=== PATIENT | male | born 1940 ===

== ENCOUNTER 2017-03-01 16:53 | Inpatient (IN) | payer MEDICARE, MEDICAID ==
[2017-03-01] MEDS ORDERED: Sodium Chloride 0.9% 1,000 ML IV STA (17:26)
[2017-03-01] MEDS ORDERED: Sodium Chloride 0.9% 1,000 ML ONE (17:32)
--- NOTE | 2017-03-01 17:34 | C.PDOC ---
History Of Present Illness <Piero Sierra - Last Filed: 03/01/17 18:32> <Jose Angel Erickson E - Last Filed: 03/01/17 21:19> 76 y/o male with Hx of Hypercholesterolemia presents to ED with complaints of abdominal pain for 4 days with associated constipation not relieved with suppositories and x7 episodes of "dark brown color" vomiting since last night. Describes pain as upper abdomen, constant, severe. Patient s/p Cholecystectomy and Hernia repair in [place]. Patient denies fever, chest pain, sob, dysuria or any other complaints at this time. ([facility],Piero T) History Per: Patient History/Exam Limitations: no limitations Onset/Duration Of Symptoms: Days Current Symptoms Are (Timing): Still Present <Piero Sierra - Last Filed: 03/01/17 18:32> <Jose Angel Erickson - Last Filed: 03/01/17 21:19> Time Seen by Provider: 03/01/17 17:06 Chief Complaint (Nursing): Abdominal Pain Past Medical History Reviewed: Historical Data, Nursing Documentation, Vital Signs - Medical History PMH: Hypercholesterolemia, Hyperlipidemia Surgical History: Cholecystectomy Family History: States: No Known Family Hx - Social History Hx Alcohol Use: No Hx Substance Use: No - Immunization History Hx Tetanus Toxoid Vaccination: No Hx Influenza Vaccination: No Hx Pneumococcal Vaccination: No <Piero Sierra - Last Filed: 03/01/17 18:32> Surgical History: Cholecystectomy (40 yrs ago, open, (large incision) but no reported complications, R groin) <Jose Angel Erickson E - Last Filed: 03/01/17 21:19> Vital Signs: Last Vital Signs Temp 98.4 F 03/01/17 20:21 Pulse 70 03/01/17 20:21 Resp 18 03/01/17 20:21 BP 122/66 03/01/17 20:21 Pulse Ox 95 03/01/17 20:21 Review Of Systems Except As Marked, All Systems Reviewed And Found Negative. Constitutional: Negative for: Fever Cardiovascular: Negative for: Chest Pain Respiratory: Negative for: Shortness of Breath Gastrointestinal: Positive for: Vomiting, Abdominal Pain, Constipation <RigoPiero Shearer - Last Filed: 03/01/17 18:32> [facility] Ex[facility] Last Filed: 03/01/17 18:32> <Jose Angel Erickson - Last Filed: 03/01/17 21:19> - Physical Exam Additional Physical Exam Comments: Constitutional: No acute distress. Head: Normocephalic. Atraumatic. Eyes: PERRL. ENT: Moist mucous membranes. Neck: Supple. Cardiovascular: Regular rate. Radial pulse 2+ bilaterally. Chest: No tenderness. Respiratory: Clear to auscultation bilaterally. GI: Upper abdomen tenderness. Old cholecystectomy scar Rectal: No gross blood. No stool palpable in rectum. Back: No CVA tenderness. Musculoskeletal: No tenderness or swelling of extremities. Skin: No rash. Neurologic: Alert, no focal deficit. (Piero Sierra) ED Course And Treatment - Laboratory Results Result Diagrams: 03/01/17 17:49 03/01/17 17:49 O2 Sat by Pulse Oximetry: 98 (RA) Pulse Ox Interpretation: Normal <Piero Sierra - Last Filed: 03/01/17 18:32> - Laboratory Results Result Diagrams: 03/01/17 17:49 03/01/17 17:49 Lab Interpretation: Abnormal (UA neg, + mild leukocytosis) ECG: Interpreted By Ar ECG Rhythm: Sinus Rhythm ECG Interpretation: Normal Rate From EC - Radiology CXR: Interpreted by Ar CXR Interpretation: Yes: No Acute Disease, Other (good NGT placement) Progress Note: 2099: d/w lizzie Barrera to consult, asks for ICU consult to consider urine output. 2114: d/w Dr. Angus samuel to Obs <Jose Angel Erickson - Last Filed: 03/01/17 21:19> Medical Decision Making <Piero Sierra - Last Filed: 03/01/17 18:32> <Jose Angel Erickson - Last Filed: 03/01/17 21:19> Medical Decision Making: Plan: * CT scan abdomen * UA * Blood work EKG NSR 86 bpm, no ST/T wave changes. Pending CT. Will sign out to ER night team at change of shift. (Piero Sierra) signed over @ 1900 belly pain, pending CT, leukocytosis 14K CT c/w SBO NGT placed for 800 cc yellowish stomach contents, periumbelical pain much improved placement confirmed by CXR d/w Dr. Scott- ICU- @ bedside. A/P: SBO prob related to large open [place] 40 yrs ago or R groin surgery decompress w NGT and pending Surg Consult in AM (Jose Angel Erickson) Disposition <Piero Sierra - Last Filed: 03/01/17 18:32> Doctor Will See Patient In The: Hospital - Disposition Disposition Time: 21:18 <Jose Angel Erickson - Last Filed: 03/01/17 21:19> - Disposition Disposition: HOSPITALIZED Condition: GOOD Forms: [employer] ([place]) - Clinical Impression Clinical Impression: Small bowel obstruction - PA / GENERAL MAINTENANCE MECHANIC / Resident Statement MD/DO has examined the patient and agrees with the treatment plan. - Scribe Statement The provider has reviewed the documentation as recorded by the Scribe <Piero Sierra - Last Filed: 03/01/17 18:32> <Jose Angel Erickson - Last Filed: 03/01/17 21:19> - Scribe Statement Yusuf Reyes All medical record entries made by the Scribe were at my direction and personally dictated by me. I have reviewed the chart and agree that the record accurately reflects my personal performance of the history, physical exam, medical decision making, and the department course for this patient. I have also personally directed, reviewed, and agree with the discharge instructions and disposition. (Piero Sierra)
[2017-03-01 17:53] LABS: BASO % 0.1 % (0.0-2.0); EOS % 0.2 % (0.0-4.0); HEMATOCRIT 41.8 % (35.0-51.0); LYMPH # 0.6 K/uL (1.0-4.3); LYMPH % 4.2 % (20.0-40.0); MEAN CELL VOLUME 89.2 fL (80.0-94.0); MEAN CORPUSCULAR HEMOGLOBIN 29.8 pg (27.0-31.0); MEAN CORPUSCULAR HGB CONC 33.4 g/dL (33.0-37.0); MEAN PLATELET VOLUME 8.6 fL (7.2-11.7); MONO # 0.7 K/uL (0.0-0.8); PLATELET COUNT 180 K/uL (130-400); RED CELL DISTRIBUTION WIDTH 13.3 % (11.5-14.5); WHITE BLOOD COUNT 14.1 K/uL (4.8-10.8)
[2017-03-01 18:01] LABS: CHLORIDE 96 mmol/L (98-107); POTASSIUM 4.2 mmol/L (3.6-5.2); SODIUM 137 mmol/L (132-148)
[2017-03-01 18:03] LABS: CARBON DIOXIDE 28 mmol/L (22-30); GFR AFRICAN-AMERICAN > 60; INR 1.1
[2017-03-01 18:04] LABS: ALB/GLOB RATIO 1.6 (1.0-2.1); ALKALINE PHOSPHATASE 54 U/L (38-126); ALT/SGPT 39 U/L (21-72); AST/SGOT 38 U/L (17-59); BLOOD UREA NITROGEN 13 mg/dL (9-20); CALCIUM 10.2 mg/dl (8.6-10.4); GLUCOSE,RANDOM 127 mg/dL (75-110); TOTAL PROTEIN 7.7 g/dL (6.3-8.3)
[2017-03-01 18:29] LABS: URINE BACTERIA MANY (<OCC); URINE BILIRUBIN NEGATIVE (NEGATIVE); URINE BLOOD NEGATIVE (NEGATIVE); URINE GLUCOSE (UA) NORMAL (Normal); URINE KETONE TRACE mg/dL (NEGATIVE); URINE LEUKOCYTE ESTERASE NEG Leu/uL (Negative); URINE PROTEIN 2+ mg/dL (NEGATIVE); URINE UROBILINOGEN NORMAL mg/dL (0.2-1.0); WBC URINE 3 /hpf (0-5)
[2017-03-01 18:40] LABS: URINE COLOR YELLOW (YELLOW)
[2017-03-01] MEDS ORDERED: Iohexol 300 100 ML IJ ONE (18:41)
[2017-03-01 19:23] LABS: NEUTROPHIL 88 % (50-75); TOTAL CELLS COUNTED 100
--- NOTE | 2017-03-01 20:28 | CT ---
EXAM: CT Abdomen and Pelvis With Intravenous Contrast EXAM DATE/TIME: Exam ordered 03/01/2017 5:27 PM CLINICAL HISTORY: 76 years old, male; Pain; Abdominal pain; Flank; Lower; Additional info: Vomiting, abdominal pain, constipation, h/o giovanni TECHNIQUE: Axial computed tomography images of the abdomen and pelvis with intravenous contrast. All CT scans at this facility use one or more dose reduction techniques, viz.: automated exposure control; ma/kV adjustment per patient size (including targeted exams where dose is matched to indication; i.e. head); or iterative reconstruction technique. Coronal and sagittal reformatted images were created and reviewed. CONTRAST: 100 mL of omni 300 administered intravenously. COMPARISON: No relevant prior studies available. FINDINGS: Lower thorax: There is a subsegmental atelectasis in the right middle lobe. Pleural-based calcification is seen on the right. Mild interstitial prominence is seen at both lung bases. ABDOMEN: Liver: Unremarkable. No mass. Gallbladder and bile ducts: Surgical clips are seen in the gallbladder fossa. No calcified stones. No ductal dilation. Pancreas: Unremarkable. No mass. No ductal dilation. Spleen: Unremarkable. No splenomegaly. Adrenals: Unremarkable. No mass. Kidneys and ureters: Unremarkable. No solid mass. No hydronephrosis. Stomach and bowel: Dilated air and fluid-filled loops of small bowel are present. There are scattered colonic diverticula. Stool is seen in the ascending and transverse colon the descending colon is relatively decompressed. There is a small right inguinal hernia. Fluid is noted in the right inguinal canal. There is a right-sided Neal's hernia in the inguinal canal containing a small portion of a small bowel loop. There is an air-fluid level at the level of the second portion of the duodenum and the pancreatic head. This could represent a duodenal diverticulum. No mucosal thickening. Appendix: Not seen as a separate structure PELVIS: Bladder: Unremarkable. No mass. Reproductive: The prostate measures 4.6 x 3.6 x 3.2 cm. ABDOMEN and PELVIS: Intraperitoneal space: Unremarkable. No free air. No significant fluid collection. Bones/joints: Moderately advanced degenerative changes are seen in the lumbar spine. No acute fracture. No dislocation. Soft tissues: See above. Vasculature: Unremarkable. No abdominal aortic aneurysm. Lymph nodes: Unremarkable. No enlarged lymph nodes. IMPRESSION: 1. Abnormally dilated air and fluid-filled small bowel loops indicating partial small bowel obstruction or early high-grade small bowel obstruction. 2. There is a right inguinal Neal's hernia. The portion of the small bowel entering the right inguinal canal however shows no evidence of strangulation. 3. Colonic diverticula. 4. Possible duodenal diverticulum.
--- NOTE | 2017-03-01 22:49 | CP.PCM.CON ---
History of Present Illness - History of Present Illness History of Present Illness: Attending: Dr Garg PCP: Dr Tejal Corbin Reason for Consult: Evaluate for ICU admission Chief Comnplaint: Abdominal Pain The Patient was seen and examined in the ED HPI: 76 years old male with Cholecystectomy and left inguinal hernia repair, comes with a 4 days hx of constipation and 2 days of a constant, severe pain across the upper abdomen, not relieved by home remedies. This was associated with vomiting. No fever, SOB, Chest Pain, Dysuria nor urinary frequency. PMH: HLD; Arthritis PSH: Cholecystectomy; Left inguinal Hernia repair SH: Smokes < than 5 cigarettes perday; No alcohol use; No illegal drug use; Live with family FH: No known family hx Allergies: NKDA Medication: Simvastatin/ Meloxicam/ Fenofibrate Review of Systems - Constitutional Constitutional: absent: Fatigue, Fever, Headache, Lethargy - EENT Eyes: Requires Corrective Lenses. absent: Diplopia, Floaters, Photophobia Ears: absent: Decreased Hearing, Ear Discharge, Tinnitus Nose/Mouth/Throat: absent: Epistaxis, Nasal Congestion, Sinus Pain, Sinus Pressure - Cardiovascular Cardiovascular: absent: Chest Pain, Dyspnea, Edema - Respiratory Respiratory: absent: Cough, Dyspnea, Wheezing, Chest Congestion - Gastrointestinal Gastrointestinal: Abdominal Pain, Constipation, Nausea, Vomiting. absent: Diarrhea - Genitourinary Genitourinary: absent: Dysuria, Flank Pain, Hematuria - Musculoskeletal Musculoskeletal: Arthralgias. absent: Back Pain Additional comments: Arthritis of the Knees - Integumentary Integumentary: absent: Pruritus, Rash, Skin Ulcer, Sores, Striae, Swelling - Neurological Neurological: absent: Confusion, Dizziness, Focal Weakness, Weakness - Psychiatric Psychiatric: absent: Anxiety, Depression, Panic Attacks - Endocrine Endocrine: absent: Palpitations, Polydipsia, Polyphagia, Polyuria - Hematologic/Lymphatic Hematologic: absent: Easy Bleeding, Easy Bruising Past Patient History - Past Medical History & Family History Past Medical History?: Yes - Past Social History Smoking Status: Light Smoker < 10 Cigarettes Daily Chewing Tobacco Use: No Cigar Use: No Alcohol: None Drugs: Denies Home Situation {Lives}: With Family - CARDIAC Hx Hypercholesterolemia: Yes - PULMONARY Hx Respiratory Disorders: No - NEUROLOGICAL Hx Neurological Disorder: No - HEENT Hx HEENT Problems: No - RENAL Hx Chronic Kidney Disease: No - ENDOCRINE/METABOLIC Hx Endocrine Disorders: No - HEMATOLOGICAL/ONCOLOGICAL Hx Blood Disorders: No - INTEGUMENTARY Hx Dermatological Problems: No - MUSCULOSKELETAL/RHEUMATOLOGICAL Hx Arthritis: Yes - GASTROINTESTINAL Hx Gastrointestinal Disorders: No - GENITOURINARY/GYNECOLOGICAL Hx Genitourinary Disorders: No - PSYCHIATRIC Hx Psychophysiologic Disorder: No Hx Substance Use: No - SURGICAL HISTORY Hx Cholecystectomy: Yes (40 yrs ago, open, (large incision) but no reported complications, R groin) Hx Herniorrhaphy: Yes (left Inguinal Hernia repair) - ANESTHESIA Hx Anesthesia: Yes Hx Anesthesia Reactions: No Meds Allergies/Adverse Reactions: Allergies Allergy/AdvReac Type Severity Reaction Status Date / Time No Known Allergies Allergy Verified 03/01/17 17:20 Physical Exam - Constitutional Appears: No Acute Distress - Head Exam Head Exam: ATRAUMATIC, NORMAL INSPECTION, NORMOCEPHALIC - Eye Exam Eye Exam: EOMI, Normal appearance Pupil Exam: NORMAL ACCOMODATION, PERRL - ENT Exam ENT Exam: Mucous Membranes Moist, Normal Exam, Normal External Ear Exam, Normal Oropharynx - Neck Exam Neck exam: Positive for: Full Rom, Normal Inspection. Negative for: Lymphadenopathy, Tenderness - Respiratory Exam Respiratory Exam: Clear to Auscultation Bilateral. absent: Rales, Rhonchi, Wheezes - Cardiovascular Exam Cardiovascular Exam: REGULAR RHYTHM, RRR, +S1, +S2 - GI/Abdominal Exam Additional comments: Full, Soft, decreased bowel sounds, Tender at RUQ> LUQ; No rebound tenderness, No guarding. - Rectal Exam Rectal Exam: Deferred - Extremities Exam Extremities exam: Positive for: full ROM, normal inspection. Negative for: calf tenderness, pedal edema - Back Exam Back exam: NORMAL INSPECTION. absent: CVA tenderness (L), CVA tenderness (R) - Neurological Exam Neurological exam: Alert, CN II-XII Intact, Oriented x3, Reflexes Normal - Psychiatric Exam Psychiatric exam: Normal Affect, Normal Mood - Skin Skin Exam: Dry, Intact, Normal Color, Warm Results - Vital Signs Recent Vital Signs: Last Vital Signs Temp 98.4 F 03/01/17 20:21 Pulse 79 03/01/17 21:46 Resp 17 03/01/17 21:46 BP 116/62 03/01/17 21:46 Pulse Ox 94 L 03/01/17 21:46 - Labs Result Diagrams: 03/01/17 17:49 03/01/17 17:49 - Imaging and Cardiology CT scan - abdomen Status: Report reviewed by me Additional comment: Abnormal Dilated air and fluid filled small bowel loops indicating Partial Small Bowel Obstruction or early high grade SBO. Colonic Diverticula Assessment & Plan - Assessment and Plan (Free Text) Plan: 76 years old male with Cholecystectomy and left inguinal hernia repair, comes with a 4 days hx of constipation and 2 days of a constant, severe pain across the upper abdomen, not relieved by home remedies. This was associated with vomiting. #. Partial Small Bowel Obstruction -Surgery on consult Dr Moreno - NPO - NG tube inserted and drained 1 Liter of yellow material and still draining - Follow serial Obstructive series - follow Electrolytes and WBC - Measure urine output - Pain management with Morphine - Zofran #. Leucocytosis Probably reactive at present. The patient who refers some improvement in his abdominal pain with the NG suctioning has stable vital signs and is stable. He Could safely be monitored on a regular bed with continued NG suctioning and vital signs monitoring. He does not need to be in the ICU at the Present time. Jori Scott MD - Date & Time Date: 03/01/17 Time: 22:49
[2017-03-01] MEDS ORDERED: Sodium Chloride 0.9% 1,000 ML IV SCH (23:30)
[2017-03-02] MEDS: Sodium Chloride 0.9% 1,000 ML IV SCH ×2 (00:33→08:02)
[2017-03-02] MEDS: Dextrose 5%/0.45% NS 1,000 ML IV SCH ×2 (02:13→09:12)
[2017-03-02 06:50] LABS: BLOOD UREA NITROGEN 12 mg/dL (9-20); CALCIUM 9.3 mg/dl (8.6-10.4); CARBON DIOXIDE 25 mmol/L (22-30); CHLORIDE 100 mmol/L (98-107); GFR AFRICAN-AMERICAN > 60; GLUCOSE,RANDOM 127 mg/dL (75-110); PHOSPHOROUS 3.4 mg/dL (2.5-4.5); POTASSIUM 3.9 mmol/L (3.6-5.2); SODIUM 136 mmol/L (132-148)
[2017-03-02 07:14] LABS: BASO % 0.2 % (0.0-2.0); EOS # 0.1 K/uL (0.0-0.7); EOS % 0.7 % (0.0-4.0); HEMATOCRIT 41.6 % (35.0-51.0); LYMPH % 10.5 % (20.0-40.0); MEAN CELL VOLUME 89.2 fL (80.0-94.0); MEAN CORPUSCULAR HGB CONC 32.5 g/dL (33.0-37.0); MEAN PLATELET VOLUME 9.3 fL (7.2-11.7); MONO # 0.7 K/uL (0.0-0.8); MONO % 7.6 % (0.0-10.0); NRBC % 0.1 % (0.0-2.0); RED CELL DISTRIBUTION WIDTH 13.6 % (11.5-14.5); WHITE BLOOD COUNT 9.7 K/uL (4.8-10.8)
--- NOTE | 2017-03-02 07:55 | RAD ---
HISTORY: NGT placement (go lower) and adm COMPARISON: No prior. FINDINGS: LUNGS: Small linear opacities at the left lung base likely atelectasis or scar tissue. PLEURA: No significant pleural effusion identified, no pneumothorax apparent. CARDIOVASCULAR: Normal. OSSEOUS STRUCTURES: No significant abnormalities. VISUALIZED UPPER ABDOMEN: NG tube seen extending to the left upper abdomen. OTHER FINDINGS: None. IMPRESSION: Basilar opacities more prominent in the left likely represent atelectasis. NG tube seen at appropriate position.
[2017-03-02] MEDS: metroNIDAZOLE IV 500 mg/100 ml 500 MG/100 ML BAG IVPB SCH ×2 (09:11→18:30)
[2017-03-02] MEDS ORDERED: Cefepime IV 1 gm in Dextrose 1 GM/50 ML BAG IVPB SCH (10:00)
[2017-03-02] MEDS ORDERED: Potassium Chloride 20 MEQ in Dextrose 5%/0.9% NS 1,000 ML IV ONE (10:47)
--- NOTE | 2017-03-02 12:20 | CP.PCM.PN ---
Subjective - Date & Time of Evaluation Date of Evaluation: 03/02/17 Time of Evaluation: 10:00 - Subjective Subjective: PGY-[address] Garg Patient seen and examined at bedside. Patient reports his abdominal pain and vomiting improved since NG tube insertion. Patient is NPO awaiting to be seen by surgery and GI. Patient denies having headache, fever, chills, shortness of breath, chest pain, nausea, vomiting, or diarrhea. Objective - Vital Signs/Intake and Output Vital Signs (last 24 hours): Temp Pulse Resp BP Pulse Ox 99.0 F 66 20 115/66 96 03/02/17 08:11 03/02/17 08:11 03/02/17 08:11 03/02/17 08:11 03/02/17 08:11 Intake and Output: 03/02/17 03/02/17 06:59 18:59 Intake Total 750 Output Total 1550 Balance -800 - Medications Medications: Current Medications Famotidine (Pepcid) 20 mg IVP Q12 [facility] Cefepime HCl (Maxipime Iv 1 Gm Premix) 1 gm in 50 mls @ 100 mls/hr IVPB BID [facility] Last Admin: 03/02/17 10:45 Dose: 100 mls/hr Metronidazole (Flagyl) 500 mg in 100 mls @ 100 mls/hr IVPB BID [facility] Last Admin: 03/02/17 09:11 Dose: 100 mls/hr Potassium Chloride 20 meq/ (Dextrose/Sodium Chloride) 1,010 mls @ 150 mls/hr IV .[id number] ONE Stop: 03/02/17 17:30 Last Admin: 03/02/17 12:04 Dose: 150 mls/hr Morphine Sulfate (Morphine) 2 mg IVP Q4 PRN PRN Reason: Pain, moderate (4-7) Morphine Sulfate (Morphine) 4 mg IV Q4 PRN PRN Reason: Pain, severe (8-10) Ondansetron HCl (Zofran Inj) 4 mg IVP Q4H PRN PRN Reason: Nausea/Vomiting Pneumococcal Polyvalent Vaccine (Pneumovax 23 Vaccine) 0.5 ml IM .ONCE ONE Stop: 03/03/17 10:01 - Labs Labs: 03/02/17 06:22 03/02/17 06:22 PT 12.0 SECONDS (9.7-12.2) 03/01/17 17:49 INR 1.1 03/01/17 17:49 APTT 29 SECONDS (21-34) 03/01/17 17:49 - Constitutional Appears: Non-toxic, No Acute Distress - Head Exam Head Exam: ATRAUMATIC, NORMAL INSPECTION - Eye Exam Eye Exam: Normal appearance - ENT Exam Additional comments: NG tube in place - Neck Exam Neck Exam: Normal Inspection - Respiratory Exam Respiratory Exam: Clear to Ausculation Bilateral, NORMAL BREATHING PATTERN - Cardiovascular Exam Cardiovascular Exam: REGULAR RHYTHM, +S1, +S2. absent: Murmur - GI/Abdominal Exam GI & Abdominal Exam: Distended, Soft, Tenderness (diffused tenderness) - Extremities Exam Extremities Exam: Normal Inspection. absent: Pedal Edema - Neurological Exam Neurological Exam: Alert, Awake, Oriented x3 - Psychiatric Exam Psychiatric exam: Normal Affect, Normal Mood - Skin Skin Exam: Dry, Warm Assessment and Plan - Assessment and Plan (Free Text) Assessment: Partial bowel obstruction -Surgery consult, Dr. Hoover help appreciated -OR with Dr. Hoover this afternoon -LR @100ml/hr -Cefepime IV 1gm Q12h -Flagyl IV 500mg BID -Morphine for pain -Zofran -Urine culture showed no growth -Follow up AM labs PPX -Pepcid IV Q12 Case discussed with Dr. Garg
--- NOTE | 2017-03-02 13:44 | CP.PCM.HP ---
Past Patient History - Past Medical History & Family History Past Medical History?: Yes - Past Social History Smoking Status: Current Some Days Smoker - CARDIAC Hx Cardiac Disorders: Yes Hx Hypercholesterolemia: Yes - PULMONARY Hx Respiratory Disorders: No - NEUROLOGICAL Hx Neurological Disorder: No - HEENT Hx HEENT Problems: No - RENAL Hx Chronic Kidney Disease: No - ENDOCRINE/METABOLIC Hx Endocrine Disorders: No - HEMATOLOGICAL/ONCOLOGICAL Hx Blood Disorders: No - INTEGUMENTARY Hx Dermatological Problems: No - MUSCULOSKELETAL/RHEUMATOLOGICAL Hx Musculoskeletal Disorders: Yes Hx Arthritis: Yes Hx Falls: No - GASTROINTESTINAL Hx Gastrointestinal Disorders: No - GENITOURINARY/GYNECOLOGICAL Hx Genitourinary Disorders: No - PSYCHIATRIC Hx Psychophysiologic Disorder: No Hx Substance Use: No - SURGICAL HISTORY Hx Surgeries: Yes Hx Cholecystectomy: Yes (40 yrs ago, open, (large incision) but no reported complications, R groin) Hx Herniorrhaphy: Yes (left Inguinal Hernia repair) - ANESTHESIA Hx Anesthesia: Yes Hx Anesthesia Reactions: No Hx Malignant Hyperthermia: No Has any member of the family had a problem w/ anesthesia?: No Meds Allergies/Adverse Reactions: Allergies Allergy/AdvReac Type Severity Reaction Status Date / Time No Known Allergies Allergy Verified 03/01/17 17:20 Physical Exam - Constitutional Appears: Well - Head Exam Head Exam: ATRAUMATIC, NORMAL INSPECTION, NORMOCEPHALIC - Eye Exam Eye Exam: EOMI, Normal appearance, PERRL Pupil Exam: NORMAL ACCOMODATION, PERRL - ENT Exam ENT Exam: Mucous Membranes Moist, Normal Exam - Neck Exam Neck exam: Positive for: Normal Inspection - Respiratory Exam Respiratory Exam: Decreased Breath Sounds - Cardiovascular Exam Cardiovascular Exam: REGULAR RHYTHM, +S1, +S2 - GI/Abdominal Exam GI & Abdominal Exam: Diminished Bowel Sounds, Soft - Rectal Exam Rectal Exam: Deferred Results - Vital Signs Recent Vital Signs: Last Vital Signs Temp 99.0 F 03/02/17 08:11 Pulse 66 03/02/17 08:11 Resp 20 03/02/17 08:11 BP 115/66 03/02/17 08:11 Pulse Ox 96 03/02/17 08:11 - Labs Result Diagrams: 03/02/17 06:22 03/02/17 06:22
--- NOTE | 2017-03-02 14:59 | CP.PCM.CON ---
<Cristo Reyes - Last Filed: 03/02/17 16:09> History of Present Illness - History of Present Illness History of Present Illness: PGY5 GI Fellow Consult Note Patient is a 76yo male with PMHx significant for dyslipidemia, hypertriglyceridemia and osteoarthritis who presents to the hospital with abdominal pain, nausea and vomiting. Patient has had intermittent constipation over the past several months, responding to suppositories. In the week leading up to admission he had become very constipated without relief with his OTC suppository medications. Tuesday evening he developed slight B/L upper abdominal pain which worsened over the several days that followed. On Tuesday, pain intensified and he became nauseated and vomited dark brown emesis multiple times at work. Pt admits that he has not had flatus or BM since this weekend. As symptoms continued to worsen, he decided to come to the ED for further evaluation. CT of the abdomen and pelvis noted multiple dilated loops of small bowel c/w SBO. He has since had NGT placed, connected to LIS with approximately 2-2.5L of dark brown/green output. Currently, he admits to persistent but improved B/L upper abdominal pain and nausea. He has not had BM or flatus since admission. Admits to 25lb weight loss in past year with occasional dark black stool. Admits to daily Mobic use for 4-5yrs for OA. PMHx: See HPI PSHx: Cholecystectomy and inguinal hernia repair in [place] 35yrs ago FHx: Discussed with patient and denies any significant family history Social: +tobacco use >60years Endo: No prior endoscopic evaluation Review of Systems - Constitutional Constitutional: Anorexia, Weight Loss. absent: Chills, Fever - EENT Eyes: absent: Change in Vision Nose/Mouth/Throat: absent: Dysphagia, Sore Throat - Cardiovascular Cardiovascular: absent: Chest Pain, Dyspnea, Palpitations - Respiratory Respiratory: absent: Cough, Dyspnea, Excessive Mucous Production - Gastrointestinal Gastrointestinal: Abdominal Pain, Bloating, Melena, Nausea, Vomiting. absent: Constipation, Cramping, Diarrhea, Hematemesis, Hematochezia, Loose Stools - Genitourinary Genitourinary: absent: Dysuria, Urinary Frequency, Urinary Urgency - Musculoskeletal Musculoskeletal: absent: Back Pain, Neck Pain - Integumentary Integumentary: absent: New Lesions, Rash - Neurological Neurological: absent: Dizziness, Numbness, Focal Weakness - Psychiatric Psychiatric: absent: Anxiety, Depression - Endocrine Endocrine: absent: Polydipsia, Polyphagia, Polyuria - Hematologic/Lymphatic Hematologic: absent: Easy Bleeding, Easy Bruising, Lymphadenopathy Past Patient History - Past Medical History & Family History Past Medical History?: Yes - Past Social History Smoking Status: Current Some Days Smoker - CARDIAC Hx Cardiac Disorders: Yes Hx Hypercholesterolemia: Yes - PULMONARY Hx Respiratory Disorders: No - NEUROLOGICAL Hx Neurological Disorder: No - HEENT Hx HEENT Problems: No - RENAL Hx Chronic Kidney Disease: No - ENDOCRINE/METABOLIC Hx Endocrine Disorders: No - HEMATOLOGICAL/ONCOLOGICAL Hx Blood Disorders: No - INTEGUMENTARY Hx Dermatological Problems: No - MUSCULOSKELETAL/RHEUMATOLOGICAL Hx Musculoskeletal Disorders: Yes Hx Arthritis: Yes Hx Falls: No - GASTROINTESTINAL Hx Gastrointestinal Disorders: No - GENITOURINARY/GYNECOLOGICAL Hx Genitourinary Disorders: No - PSYCHIATRIC Hx Psychophysiologic Disorder: No Hx Substance Use: No - SURGICAL HISTORY Hx Surgeries: Yes Hx Cholecystectomy: Yes (40 yrs ago, open, (large incision) but no reported complications, R groin) Hx Herniorrhaphy: Yes (left Inguinal Hernia repair) - ANESTHESIA Hx Anesthesia: Yes Hx Anesthesia Reactions: No Hx Malignant Hyperthermia: No Has any member of the family had a problem w/ anesthesia?: No Meds Allergies/Adverse Reactions: Allergies Allergy/AdvReac Type Severity Reaction Status Date / Time No Known Allergies Allergy Verified 03/01/17 17:20 - Medications Medications: Current Medications Famotidine (Pepcid) 20 mg IVP Q12 [facility] Cefepime HCl (Maxipime Iv 1 Gm Premix) 1 gm in 50 mls @ 100 mls/hr IVPB BID [facility] Last Admin: 03/02/17 10:45 Dose: 100 mls/hr Metronidazole (Flagyl) 500 mg in 100 mls @ 100 mls/hr IVPB BID [facility] Last Admin: 03/02/17 09:11 Dose: 100 mls/hr Potassium Chloride 20 meq/ (Dextrose/Sodium Chloride) 1,010 mls @ 150 mls/hr IV .Q6H44M ONE Stop: 03/02/17 17:30 Last Admin: 03/02/17 12:04 Dose: 150 mls/hr Morphine Sulfate (Morphine) 2 mg IVP Q4 PRN PRN Reason: Pain, moderate (4-7) Morphine Sulfate (Morphine) 4 mg IV Q4 PRN PRN Reason: Pain, severe (8-10) Ondansetron HCl (Zofran Inj) 4 mg IVP Q4H PRN PRN Reason: Nausea/Vomiting Pneumococcal Polyvalent Vaccine (Pneumovax 23 Vaccine) 0.5 ml IM .ONCE ONE Stop: 03/03/17 10:01 Physical Exam - Constitutional Appears: Non-toxic, No Acute Distress - Eye Exam Eye Exam: EOMI, PERRL - ENT Exam ENT Exam: Mucous Membranes Dry Additional comments: NGT in place with dark brown/green output - Respiratory Exam Respiratory Exam: Clear to Auscultation Bilateral. absent: Rales, Rhonchi, Wheezes - Cardiovascular Exam Cardiovascular Exam: RRR, +S1, +S2 - GI/Abdominal Exam GI & Abdominal Exam: Distended, Hypoactive Bowel Sounds, Soft. absent: Firm, Guarding, Organomegaly, Rigid, Tenderness - Extremities Exam Extremities exam: Positive for: normal inspection. Negative for: pedal edema - Neurological Exam Neurological exam: Alert, Oriented x3 - Psychiatric Exam Psychiatric exam: Normal Affect, Normal Mood - Skin Skin Exam: Dry, Warm Results - Vital Signs Recent Vital Signs: Last Vital Signs Temp 99.0 F 03/02/17 08:11 Pulse 66 03/02/17 08:11 Resp 20 03/02/17 08:11 BP 115/66 03/02/17 08:11 Pulse Ox 96 03/02/17 08:11 - Labs Result Diagrams: 03/02/17 06:22 03/02/17 06:22 Assessment & Plan - Assessment and Plan (Free Text) Assessment: Patient is a 76yo male with PMHx significant for dyslipidemia, hypertriglyceridemia and osteoarthritis who presents to the hospital with abdominal pain, nausea and vomiting -Small bowel obstruction -Constipation 2/2 above -OA on Mobic daily 4-5yrs Plan: -Agree with current management; NPO, NGT decompression with connection to LIS -Etiology likely a result of adhesive disease from prior surgical interventions -Defer current management to general surgical service - plan for surgical intervention this afternoon; plan per findings -Patient would benefit from endoscopic evaluation once acute issues resolve, likely outpatient -Separately, patient would benefit from daily PPI for GI ppx given rehanger NSAID use for OA -Will follow clinical course - Date & Time Date: 03/02/17 Time: 15:06 <Rivas Webster - Last Filed: 03/02/17 16:39> Meds - Medications Medications: Current Medications Famotidine (Pepcid) 20 mg IVP Q12 [facility] Cefepime HCl (Maxipime Iv 1 Gm Premix) 1 gm in 50 mls @ 100 mls/hr IVPB BID [facility] Last Admin: 03/02/17 10:45 Dose: 100 mls/hr Metronidazole (Flagyl) 500 mg in 100 mls @ 100 mls/hr IVPB BID [facility] Last Admin: 03/02/17 09:11 Dose: 100 mls/hr Potassium Chloride 20 meq/ (Dextrose/Sodium Chloride) 1,010 mls @ 150 mls/hr IV .Q6H44M ONE Stop: 03/02/17 17:30 Last Admin: 03/02/17 12:04 Dose: 150 mls/hr Morphine Sulfate (Morphine) 2 mg IVP Q4 PRN PRN Reason: Pain, moderate (4-7) Morphine Sulfate (Morphine) 4 mg IV Q4 PRN PRN Reason: Pain, severe (8-10) Ondansetron HCl (Zofran Inj) 4 mg IVP Q4H PRN PRN Reason: Nausea/Vomiting Pneumococcal Polyvalent Vaccine (Pneumovax 23 Vaccine) 0.5 ml IM .ONCE ONE Stop: 03/03/17 10:01 Results - Vital Signs Recent Vital Signs: Last Vital Signs Temp 99.0 F 03/02/17 08:11 Pulse 66 03/02/17 08:11 Resp 20 03/02/17 08:11 BP 115/66 03/02/17 08:11 Pulse Ox 96 03/02/17 08:11 - Labs Result Diagrams: 03/02/17 06:22 03/02/17 06:22 Attending/Attestation - Attestation I have personally seen and examined this patient.: Yes I have fully participated in the care of the patient.: Yes I have reviewed all pertinent clinical information: Yes Notes (Text): 03/02/17 16:38 76 year old male with HLD/OA , h/o cholecystectomy admitted with SBO. 1. Small bowel obstruction Plan: -s/p NGT decompression, going to OR now -agree with plan for surgery -supportive measures with hydration -will reassess post op -possible adhesions as etiology
--- NOTE | 2017-03-02 15:26 | RAD ---
PROCEDURE: Radiographs of the chest and abdomen (obstructive series) HISTORY: Follow up on SBO COMPARISON: CT abdomen and pelvis with contrast performed 03/01/17 FINDINGS: CHEST: Nasogastric tube extends expected location of the stomach. Heart size appears within normal limits. Dense atherosclerotic calcification of the aortic knob. No focal consolidation, significant pleural effusion, or definite pneumothorax identified.Please note that chest x-ray has limited sensitivity for the detection of pulmonary masses. Degenerative changes of the right greater than left shoulder and the thoracic spine. ABDOMEN AND PELVIS: Prominent dilated small bowel loops consistent with small bowel obstruction. Right upper quadrant surgical clips. No definite free air. Residual contrast is seen within the urinary bladder. Degenerative changes of the spine. IMPRESSION: Nasogastric tube extends to the expected location of the stomach. Dilated small bowel loops consistent with small bowel obstruction. Additional findings as above.
[2017-03-02] MEDS ORDERED: Propofol 10 mg/ml Inj (20 ML) ONE (15:40)
[2017-03-02] MEDS ORDERED: Lactated Ringer's 1,000 ML IV ONE ×2 (15:40→18:00)
[2017-03-02] MEDS ORDERED: Rocuronium 10 mg/ml (5 ml) ONE (15:43)
[2017-03-02] MEDS ORDERED: Sodium Chloride 0.9% 1,000 ML IV ONE (16:00)
[2017-03-02] MEDS ORDERED: Neostigmine Methylsulfate 3mg/3ml Syringe IV ONE (16:22)
[2017-03-02] MEDS ORDERED: Midazolam 2 MG/2 ML VIAL ONE (16:45)
[2017-03-02] MEDS ORDERED: HYDROmorphone 0.5 mg/0.5 ml ISec IVP PRN (17:16)
--- NOTE | 2017-03-02 18:00 | CARD ---
APPROVED REPORT EKG Measurement Heart [id number] <Conclusion> Normal sinus rhythm Normal ECG
--- NOTE | 2017-03-02 18:16 | CP.PCM.PN ---
Subjective - Date & Time of Evaluation Date of Evaluation: 03/02/17 Time of Evaluation: 15:00 - Subjective Subjective: clinically same Objective - Vital Signs/Intake and Output Vital Signs (last 24 hours): Temp Pulse Resp BP Pulse Ox 97.8 F 63 12 130/61 100 03/02/17 17:10 03/02/17 17:41 03/02/17 17:41 03/02/17 17:41 03/02/17 17:41 Intake and Output: 03/02/17 03/02/17 06:59 18:59 Output Total 200 Balance -200 - Medications Medications: Current Medications Famotidine (Pepcid) 20 mg IVP Q12 [facility] Hydromorphone HCl (Dilaudid) 0.5 mg IVP Q5M PRN PRN Reason: Pain, severe (8-10) Stop: 03/02/17 19:16 Cefepime HCl (Maxipime Iv 1 Gm Premix) 1 gm in 50 mls @ 100 mls/hr IVPB BID [facility] Last Admin: 03/02/17 10:45 Dose: 100 mls/hr Metronidazole (Flagyl) 500 mg in 100 mls @ 100 mls/hr IVPB BID [facility] Last Admin: 03/02/17 09:11 Dose: 100 mls/hr Morphine Sulfate (Morphine) 2 mg IVP Q4 PRN PRN Reason: Pain, moderate (4-7) Morphine Sulfate (Morphine) 4 mg IV Q4 PRN PRN Reason: Pain, severe (8-10) Ondansetron HCl (Zofran Inj) 4 mg IVP Q4H PRN PRN Reason: Nausea/Vomiting Ondansetron HCl (Zofran Inj) 4 mg IVP ONCE PRN PRN Reason: Nausea/Vomiting Stop: 03/02/17 19:17 Pneumococcal Polyvalent Vaccine (Pneumovax 23 Vaccine) 0.5 ml IM .ONCE ONE Stop: 03/03/17 10:01 - Labs Labs: PT 12.0 SECONDS (9.7-12.2) 03/01/17 17:49 INR 1.1 03/01/17 17:49 APTT 29 SECONDS (21-34) 03/01/17 17:49 - Constitutional Appears: Well - Head Exam Head Exam: ATRAUMATIC, NORMAL INSPECTION, NORMOCEPHALIC - Eye Exam Eye Exam: EOMI, Normal appearance, PERRL Pupil Exam: NORMAL ACCOMODATION, PERRL - ENT Exam ENT Exam: Mucous Membranes Moist, Normal Exam - Neck Exam Neck Exam: Full ROM, Normal Inspection. absent: Lymphadenopathy - Respiratory Exam Respiratory Exam: Decreased Breath Sounds - Cardiovascular Exam Cardiovascular Exam: REGULAR RHYTHM, +S1, +S2 - GI/Abdominal Exam GI & Abdominal Exam: Soft, Diminished Bowel Sounds - Rectal Exam Rectal Exam: Deferred Assessment and Plan - Assessment and Plan (Free Text) Plan: Status post laparoscopy follow-up with Dr. Hoover and Patient has a pain Patient is on pain medicine Continue IV antibiotic Continue with the GI doctor Monitor the electrolytes
[2017-03-02] MEDS: Cefepime IV 1 gm in Dextrose 1 GM/50 ML BAG IVPB SCH (22:00)
[2017-03-02] MEDS: Lactated Ringer's 1,000 ML IV SCH (22:20)
[2017-03-03] MEDS: Morphine 4 MG/ML VIAL IV PRN ×3 (00:40→20:22)
--- NOTE | 2017-03-03 03:09 | OP ---
PROCEDURE DATE: 03/02/2017 PREOPERATIVE DIAGNOSIS: High-grade small bowel obstruction. POSTOPERATIVE DIAGNOSIS: High-grade small bowel obstruction secondary to adhesions. PROCEDURES PERFORMED: Exploratory laparotomy, lysis of adhesions. SURGEON: Dr. Hoover. TYPE OF ANESTHESIA: General. ESTIMATED BLOOD LOSS: 20 mL. POSTOPERATIVE CONDITION: Stable. INDICATIONS FOR SURGERY: This is a 76-year-old male presented with high-grade small bowel obstruction, discovered on CAT scan last night. Overnight, he has put out nearly 1000 mL out of his [place] tube, was felt to have high-grade obstruction and is now taken to the operating room for laparotomy. GROSS FINDINGS: There was an acute kink in the distal ileum near the ileocecal valve secondary to adhesions. This was the clear transition zone of the instruction. The colon was decompressed, and the proximal small bowel was dilated. The transition zone was at this point. DESCRIPTION OF PROCEDURE: The patient was taken to the operating room, general anesthesia was administered and the abdomen was prepped and draped. The abdomen was entered through a midline incision and the small bowel was delivered outside the abdomen to further explore the wound. There was a kink noted and down at the ileocecal valve and the adhesions in this area were taken down sharply using Metzenbaum scissors. There was noted to be serosal tears of the ileum and the cecum and these were repaired with silk. A ileocecal blood vessel was also repaired with Prolene. Once the adhesions have been taken down and the kink was relieved that its clear transition zone was seen in the ileum near the ileocecal valve. The abdomen was explored at any rate and no other abnormal findings were found. The midline fascia was closed with running double-stranded PDS and the subcutaneous tissue was undermined on the skin in order to close for a nice tension free closure using Vicryl and skin clips. The patient tolerated the procedure well and sent to recovery room in stable condition. Jose A Hoover MD
[2017-03-03 06:37] LABS: BASO % 0.1 % (0.0-2.0); EOS % 0.7 % (0.0-4.0); HEMATOCRIT 36.7 % (35.0-51.0); LYMPH # 0.9 K/uL (1.0-4.3); LYMPH % 14.9 % (20.0-40.0); MEAN CELL VOLUME 88.9 fL (80.0-94.0); MEAN CORPUSCULAR HEMOGLOBIN 29.9 pg (27.0-31.0); MEAN CORPUSCULAR HGB CONC 33.7 g/dL (33.0-37.0); MEAN PLATELET VOLUME 8.9 fL (7.2-11.7); MONO # 0.6 K/uL (0.0-0.8); MONO % 8.9 % (0.0-10.0); RED CELL DISTRIBUTION WIDTH 13.3 % (11.5-14.5); WHITE BLOOD COUNT 6.3 K/uL (4.8-10.8)
[2017-03-03 06:50] LABS: ALB/GLOB RATIO 1.4 (1.0-2.1); ALKALINE PHOSPHATASE 35 U/L (38-126); ALT/SGPT 29 U/L (21-72); AST/SGOT 38 U/L (17-59); BILIRUBIN,TOTAL 0.7 mg/dL (0.2-1.3); BLOOD UREA NITROGEN 10 mg/dL (9-20); CALCIUM 8.2 mg/dl (8.6-10.4); CARBON DIOXIDE 24 mmol/L (22-30); CHLORIDE 99 mmol/L (98-107); GFR AFRICAN-AMERICAN > 60; GLUCOSE,RANDOM 94 mg/dL (75-110); MAGNESIUM 1.7 mg/dL (1.6-2.3); PHOSPHOROUS 3.1 mg/dL (2.5-4.5); POTASSIUM 3.8 mmol/L (3.6-5.2); SODIUM 132 mmol/L (132-148)
--- NOTE | 2017-03-03 08:27 | CP.PCM.PN ---
<Cristo Reyes - Last Filed: 03/03/17 08:24> Subjective - Date & Time of Evaluation Date of Evaluation: 03/03/17 Time of Evaluation: 06:50 - Subjective Subjective: PGY5 GI Fellow Progress Note Patient seen and examined bedside this morning. The patient states that he is feeling better overall but still has no flatus/BM. Tolerated laparoscopy and is being monitored in ICU post-op. Accidentally removed A-line overnight. 12 system ROS performed and negative except where stated. Objective - Vital Signs/Intake and Output Vital Signs (last 24 hours): Temp Pulse Resp BP Pulse Ox 99 F 74 26 H 107/47 L 94 L 03/03/17 04:00 03/03/17 08:10 03/03/17 08:10 03/03/17 07:50 03/03/17 08:10 Intake and Output: 03/03/17 03/03/17 06:59 18:59 Intake Total 1100 100 Output Total 895 350 Balance 205 -250 - Medications Medications: Current Medications Famotidine (Pepcid) 20 mg IVP Q12 [facility] Last Admin: 03/02/17 22:00 Dose: 20 mg Metronidazole (Flagyl) 500 mg in 100 mls @ 100 mls/hr IVPB BID [facility] Last Admin: 03/02/17 18:30 Dose: 100 mls Cefepime HCl (Maxipime Iv 1 Gm Premix) 1 gm in 50 mls @ 100 mls/hr IVPB Q12H [facility] Last Admin: 03/02/17 22:00 Dose: 100 mls/hr Lactated Ringer's (Lactated Ringer's) 1,000 mls @ 100 mls/hr IV .Q10H [facility] Last Admin: 03/02/17 22:20 Dose: 100 mls/hr Morphine Sulfate (Morphine) 2 mg IVP Q4 PRN PRN Reason: Pain, moderate (4-7) Last Admin: 03/03/17 03:15 Dose: 2 mg Morphine Sulfate (Morphine) 4 mg IV Q4 PRN PRN Reason: Pain, severe (8-10) Last Admin: 03/03/17 00:40 Dose: 4 mg Ondansetron HCl (Zofran Inj) 4 mg IVP Q4H PRN PRN Reason: Nausea/Vomiting Pneumococcal Polyvalent Vaccine (Pneumovax 23 Vaccine) 0.5 ml IM .ONCE ONE Stop: 03/03/17 10:01 - Labs Labs: 03/03/17 06:27 03/03/17 06:20 PT 12.0 SECONDS (9.7-12.2) 03/01/17 17:49 INR 1.1 03/01/17 17:49 APTT 29 SECONDS (21-34) 03/01/17 17:49 - Constitutional Appears: Non-toxic, No Acute Distress - Eye Exam Eye Exam: EOMI, PERRL - ENT Exam ENT Exam: Mucous Membranes Dry Additional comments: NGT in place; 300cc dark bilious output - Respiratory Exam Respiratory Exam: Clear to Ausculation Bilateral. absent: Rales, Rhonchi, Wheezes - Cardiovascular Exam Cardiovascular Exam: RRR, +S1, +S2 - GI/Abdominal Exam GI & Abdominal Exam: Soft, Hypoactive Bowel Sounds. absent: Distended, Firm, Guarding, Rigid, Tenderness, Organomegaly - Extremities Exam Extremities Exam: Normal Inspection. absent: Pedal Edema - Neurological Exam Neurological Exam: Alert, Awake, Oriented x3 - Psychiatric Exam Psychiatric exam: Normal Affect, Normal Mood - Skin Skin Exam: Dry, Warm Assessment and Plan - Assessment and Plan (Free Text) Assessment: Patient is a 76yo male with PMHx significant for dyslipidemia, hypertriglyceridemia and osteoarthritis who presents to the hospital with abdominal pain, nausea and vomiting -Small bowel obstruction -Constipation 2/2 above -OA on Mobic daily 4-5yrs Plan: -S/P laparoscopy with NOEMÍ POD#1 -Continue with NPO, NGT to LIS -Defer ongoing management to general surgical service -Patient would benefit from endoscopic evaluation once acute issues resolve as an outpatient -Patient would benefit from daily PPI for GI ppx given mcc NSAID use for OA once tolerating PO <Kilo Jackson Y - Last Filed: 03/03/17 13:24> Objective - Vital Signs/Intake and Output Vital Signs (last 24 hours): Temp Pulse Resp BP Pulse Ox 99 F 76 18 94/55 L 97 03/03/17 04:00 03/03/17 12:04 03/03/17 12:04 03/03/17 12:04 03/03/17 12:04 Intake and Output: 03/03/17 03/03/17 06:59 18:59 Intake Total 1100 550 Output Total 895 755 Balance 205 -205 - Medications Medications: Current Medications Famotidine (Pepcid) 20 mg IVP Q12 [facility] Last Admin: 03/03/17 09:45 Dose: 20 mg Metronidazole (Flagyl) 500 mg in 100 mls @ 100 mls/hr IVPB BID [facility] Last Admin: 03/03/17 11:04 Dose: 100 mls/hr Cefepime HCl (Maxipime Iv 1 Gm Premix) 1 gm in 50 mls @ 100 mls/hr IVPB Q12H [facility] Last Admin: 03/03/17 09:45 Dose: 100 mls/hr Lactated Ringer's (Lactated Ringer's) 1,000 mls @ 100 mls/hr IV .Q10H [facility] Last Admin: 03/03/17 08:31 Dose: 100 mls/hr Morphine Sulfate (Morphine) 2 mg IVP Q4 PRN PRN Reason: Pain, moderate (4-7) Last Admin: 03/03/17 03:15 Dose: 2 mg Morphine Sulfate (Morphine) 4 mg IV Q4 PRN PRN Reason: Pain, severe (8-10) Last Admin: 03/03/17 11:56 Dose: 4 mg Ondansetron HCl (Zofran Inj) 4 mg IVP Q4H PRN PRN Reason: Nausea/Vomiting - Labs Labs: 03/03/17 06:27 03/03/17 06:20 PT 12.0 SECONDS (9.7-12.2) 03/01/17 17:49 INR 1.1 03/01/17 17:49 APTT 29 SECONDS (21-34) 03/01/17 17:49 Attending/Attestation - Attestation I have personally seen and examined this patient.: Yes I have fully participated in the care of the patient.: Yes I have reviewed all pertinent clinical information, including history, physical exam and plan: Yes Notes (Text): 03/03/17 13:21 I have seen and examined patient with GI fellow. No acute events overnight. He is seen resting in bed comfortably, complains of abdominal pain at surgical site. He is s/p exploratory laparotomy with lysis of adhesions yesterday. Osteoarthritis Hyperlipidemia Abdominal pain, small bowel obstruction POD #1 ex lap with NOEMÍ - NPO - Continue to monitor NGT output - Pain control - No further planned GI interventions, will sign off case. Further plan as per surgical team. Patient would benefit from outpatient endoscopic evaluation following recovery from recent surgery. Please reconsult as necessary, thank you.
[2017-03-03] MEDS: Lactated Ringer's 1,000 ML IV SCH ×3 (08:31→21:07)
[2017-03-03] MEDS: Cefepime IV 1 gm in Dextrose 1 GM/50 ML BAG IVPB SCH ×2 (09:45→22:10)
[2017-03-03] MEDS ORDERED: Pneumococcal 23-Valent Vaccine IM ONE (10:00)
[2017-03-03] MEDS: metroNIDAZOLE IV 500 mg/100 ml 500 MG/100 ML BAG IVPB SCH ×2 (11:04→18:04)
[2017-03-04] MEDS: metroNIDAZOLE IV 500 mg/100 ml 500 MG/100 ML BAG IVPB SCH ×2 (11:03→17:48)
[2017-03-04] MEDS: Cefepime IV 1 gm in Dextrose 1 GM/50 ML BAG IVPB SCH ×2 (11:03→21:28)
--- NOTE | 2017-03-04 11:09 | CP.PCM.PN ---
Subjective - Date & Time of Evaluation Date of Evaluation: 03/04/17 Time of Evaluation: 08:00 - Subjective Subjective: General Surgery Pt S&E, NAEO. No BM/flatus, NGT with 420cc/24hrs. Pain controlled with meds. Using IS. Objective - Vital Signs/Intake and Output Vital Signs (last 24 hours): Temp Pulse Resp BP Pulse Ox 99.3 F 73 21 107/49 L 95 03/04/17 07:44 03/04/17 07:44 03/04/17 07:44 03/04/17 07:44 03/04/17 07:44 Intake and Output: 03/04/17 03/04/17 06:59 18:59 Intake Total 1050 Output Total 520 Balance 530 - Medications Medications: Current Medications Famotidine (Pepcid) 20 mg IVP Q12 [facility] Last Admin: 03/03/17 22:56 Dose: 20 mg Metronidazole (Flagyl) 500 mg in 100 mls @ 100 mls/hr IVPB BID [facility] Last Admin: 03/03/17 18:04 Dose: 100 mls/hr Cefepime HCl (Maxipime Iv 1 Gm Premix) 1 gm in 50 mls @ 100 mls/hr IVPB Q12H [facility] Last Admin: 03/03/17 22:10 Dose: 100 mls/hr Lactated Ringer's (Lactated Ringer's) 1,000 mls @ 100 mls/hr IV .Q10H [facility] Last Admin: 03/03/17 21:07 Dose: 100 mls/hr Morphine Sulfate (Morphine) 2 mg IVP Q4 PRN PRN Reason: Pain, moderate (4-7) Last Admin: 03/03/17 03:15 Dose: 2 mg Morphine Sulfate (Morphine) 4 mg IV Q4 PRN PRN Reason: Pain, severe (8-10) Last Admin: 03/03/17 20:22 Dose: 4 mg Ondansetron HCl (Zofran Inj) 4 mg IVP Q4H PRN PRN Reason: Nausea/Vomiting - Labs Labs: 03/03/17 06:27 03/03/17 06:20 PT 12.0 SECONDS (9.7-12.2) 03/01/17 17:49 INR 1.1 03/01/17 17:49 APTT 29 SECONDS (21-34) 03/01/17 17:49 - Constitutional Appears: Non-toxic, No Acute Distress - Head Exam Head Exam: ATRAUMATIC, NORMOCEPHALIC - Respiratory Exam Respiratory Exam: NORMAL BREATHING PATTERN. absent: Respiratory Distress - GI/Abdominal Exam GI & Abdominal Exam: Guarding, Soft, Tenderness (most in upper abd near incision ). absent: Distended, Firm, Rigid Additional comments: dressing D/I with some serosanguinous staining - Neurological Exam Neurological Exam: Alert, Awake - Skin Skin Exam: Dry, Warm Assessment and Plan - Assessment and Plan (Free Text) Assessment: 76M s/p Ex Lap for SBO POD#1 Plan: Encouraged ambulation and IS use Monitor for bowel function Continue NGT to LIS IV reglan IVF Pain control D/W Dr. Espinoza (covering for Dr. Hoover) PGY4
[2017-03-04] MEDS: Lactated Ringer's 1,000 ML IV SCH ×2 (13:22→21:36)
--- NOTE | 2017-03-04 15:14 | CP.PCM.PN ---
Subjective - Date & Time of Evaluation Date of Evaluation: 03/04/17 Time of Evaluation: 11:10 - Subjective Subjective: PGY-[address] Garg Patient seen and examined at bedside. Patien was graded from ICU to the floor overnight. Patient reports pain at the surgical site, managed well with pain medication. He has not pass any flatus yet. Denies headache, fever, chills, shortness of breath, coughs, chest pain, nausea or vomiting. Objective - Vital Signs/Intake and Output Vital Signs (last 24 hours): Temp Pulse Resp BP Pulse Ox 99.3 F 73 21 107/49 L 95 03/04/17 07:44 03/04/17 07:44 03/04/17 07:44 03/04/17 07:44 03/04/17 07:44 Intake and Output: 03/04/17 03/04/17 06:59 18:59 Intake Total 1050 Output Total 520 Balance 530 - Medications Medications: Current Medications Famotidine (Pepcid) 20 mg IVP Q12 [facility] Last Admin: 03/04/17 11:07 Dose: 20 mg Metronidazole (Flagyl) 500 mg in 100 mls @ 100 mls/hr IVPB BID [facility] Last Admin: 03/04/17 11:03 Dose: 100 mls/hr Cefepime HCl (Maxipime Iv 1 Gm Premix) 1 gm in 50 mls @ 100 mls/hr IVPB Q12H [facility] Last Admin: 03/04/17 11:03 Dose: 100 mls/hr Lactated Ringer's (Lactated Ringer's) 1,000 mls @ 100 mls/hr IV .Q10H [facility] Last Admin: 03/04/17 13:22 Dose: Not Given Metoclopramide HCl (Reglan) 5 mg IVP TID [facility] Last Admin: 03/04/17 13:22 Dose: Not Given Morphine Sulfate (Morphine) 2 mg IVP Q4 PRN PRN Reason: Pain, moderate (4-7) Last Admin: 03/03/17 03:15 Dose: 2 mg Morphine Sulfate (Morphine) 4 mg IV Q4 PRN PRN Reason: Pain, severe (8-10) Last Admin: 03/03/17 20:22 Dose: 4 mg Ondansetron HCl (Zofran Inj) 4 mg IVP Q4H PRN PRN Reason: Nausea/Vomiting - Labs Labs: 03/03/17 06:27 03/03/17 06:20 PT 12.0 SECONDS (9.7-12.2) 03/01/17 17:49 INR 1.1 03/01/17 17:49 APTT 29 SECONDS (21-34) 03/01/17 17:49 - Constitutional Appears: Non-toxic, No Acute Distress - Head Exam Head Exam: ATRAUMATIC, NORMAL INSPECTION - Eye Exam Eye Exam: Normal appearance - ENT Exam ENT Exam: Mucous Membranes Moist - Neck Exam Neck Exam: Normal Inspection - Respiratory Exam Respiratory Exam: Clear to Ausculation Bilateral, NORMAL BREATHING PATTERN. absent: Respiratory Distress - Cardiovascular Exam Cardiovascular Exam: REGULAR RHYTHM, +S1, +S2. absent: Murmur - GI/Abdominal Exam GI & Abdominal Exam: Guarding, Soft, Tenderness (at the incision site). absent : Distended Additional comments: surgical wound dressing with dried serosanguinous stain - Extremities Exam Extremities Exam: Normal Inspection - Neurological Exam Neurological Exam: Alert, Awake, Oriented x3 - Psychiatric Exam Psychiatric exam: Normal Affect, Normal Mood - Skin Skin Exam: Normal Color, Warm Assessment and Plan - Assessment and Plan (Free Text) Assessment: Small bowel obstruction -s/p Ex lap for SOB POD #2 -Continue ambulation and incentive spirometry -Continue Cefepime and Flagyl -Continue LR @100ml/hr -zofran and reglan prn -Morphine prn -Monitor for BM and flatus PPX -Pepcid -SCD Case discussed with attending Dr. Garg
[2017-03-04 17:48] VITALS: RESP 20
--- NOTE | 2017-03-04 18:54 | CP.PCM.PN ---
Subjective - Date & Time of Evaluation Date of Evaluation: 03/04/17 Time of Evaluation: 07:40 - Subjective Subjective: clinically same Objective - Vital Signs/Intake and Output Vital Signs (last 24 hours): Temp Pulse Resp BP Pulse Ox 99.3 F 76 20 101/48 L 95 03/04/17 16:00 03/04/17 16:00 03/04/17 16:00 03/04/17 16:00 03/04/17 16:00 Intake and Output: 03/04/17 03/04/17 06:59 18:59 Intake Total 1050 Output Total 520 Balance 530 - Medications Medications: Current Medications Famotidine (Pepcid) 20 mg IVP Q12 [facility] Last Admin: 03/04/17 11:07 Dose: 20 mg Metronidazole (Flagyl) 500 mg in 100 mls @ 100 mls/hr IVPB BID [facility] Last Admin: 03/04/17 17:48 Dose: 100 mls/hr Cefepime HCl (Maxipime Iv 1 Gm Premix) 1 gm in 50 mls @ 100 mls/hr IVPB Q12H [facility] Last Admin: 03/04/17 11:03 Dose: 100 mls/hr Lactated Ringer's (Lactated Ringer's) 1,000 mls @ 100 mls/hr IV .Q10H [facility] Last Admin: 03/04/17 13:22 Dose: Not Given Metoclopramide HCl (Reglan) 5 mg IVP TID [facility] Last Admin: 03/04/17 17:50 Dose: 5 mg Morphine Sulfate (Morphine) 2 mg IVP Q4 PRN PRN Reason: Pain, moderate (4-7) Last Admin: 03/03/17 03:15 Dose: 2 mg Morphine Sulfate (Morphine) 4 mg IV Q4 PRN PRN Reason: Pain, severe (8-10) Last Admin: 03/03/17 20:22 Dose: 4 mg Ondansetron HCl (Zofran Inj) 4 mg IVP Q4H PRN PRN Reason: Nausea/Vomiting - Labs Labs: 03/03/17 06:27 03/03/17 06:20 PT 12.0 SECONDS (9.7-12.2) 03/01/17 17:49 INR 1.1 03/01/17 17:49 APTT 29 SECONDS (21-34) 03/01/17 17:49 - Constitutional Appears: Well - Head Exam Head Exam: ATRAUMATIC, NORMAL INSPECTION, NORMOCEPHALIC - Eye Exam Eye Exam: EOMI, Normal appearance, PERRL Pupil Exam: NORMAL ACCOMODATION, PERRL - ENT Exam ENT Exam: Mucous Membranes Moist, Normal Exam - Neck Exam Neck Exam: Full ROM, Normal Inspection. absent: Lymphadenopathy - Respiratory Exam Respiratory Exam: Decreased Breath Sounds - Cardiovascular Exam Cardiovascular Exam: REGULAR RHYTHM, +S1, +S2 - GI/Abdominal Exam GI & Abdominal Exam: Soft, Diminished Bowel Sounds - Rectal Exam Rectal Exam: Deferred
[2017-03-05] MEDS: Lactated Ringer's 1,000 ML IV SCH ×3 (00:15→21:14)
[2017-03-05] MEDS: Cefepime IV 1 gm in Dextrose 1 GM/50 ML BAG IVPB SCH ×2 (10:45→22:15)
[2017-03-05] MEDS: metroNIDAZOLE IV 500 mg/100 ml 500 MG/100 ML BAG IVPB SCH ×2 (10:46→17:41)
--- NOTE | 2017-03-05 14:24 | CP.PCM.PN ---
Subjective - Date & Time of Evaluation Date of Evaluation: 03/05/17 Time of Evaluation: 07:40 - Subjective Subjective: clinically same Objective - Vital Signs/Intake and Output Vital Signs (last 24 hours): Temp Pulse Resp BP Pulse Ox 98.5 F 80 20 145/71 92 L 03/05/17 08:00 03/05/17 08:00 03/05/17 08:00 03/05/17 08:00 03/05/17 08:00 Intake and Output: 03/05/17 03/05/17 06:59 18:59 Intake Total 1600 Output Total 300 Balance 1300 - Medications Medications: Current Medications Famotidine (Pepcid) 20 mg IVP Q12 [facility] Last Admin: 03/05/17 10:45 Dose: 20 mg Metronidazole (Flagyl) 500 mg in 100 mls @ 100 mls/hr IVPB BID [facility] Last Admin: 03/05/17 10:46 Dose: 100 mls/hr Cefepime HCl (Maxipime Iv 1 Gm Premix) 1 gm in 50 mls @ 100 mls/hr IVPB Q12H [facility] Last Admin: 03/05/17 10:45 Dose: 100 mls/hr Lactated Ringer's (Lactated Ringer's) 1,000 mls @ 100 mls/hr IV .Q10H [facility] Last Admin: 03/05/17 12:19 Dose: Not Given Metoclopramide HCl (Reglan) 5 mg IVP TID [facility] Last Admin: 03/05/17 14:06 Dose: Not Given Morphine Sulfate (Morphine) 2 mg IVP Q4 PRN PRN Reason: Pain, moderate (4-7) Last Admin: 03/03/17 03:15 Dose: 2 mg Morphine Sulfate (Morphine) 4 mg IV Q4 PRN PRN Reason: Pain, severe (8-10) Last Admin: 03/03/17 20:22 Dose: 4 mg Ondansetron HCl (Zofran Inj) 4 mg IVP Q4H PRN PRN Reason: Nausea/Vomiting - Labs Labs: 03/03/17 06:27 03/03/17 06:20 PT 12.0 SECONDS (9.7-12.2) 03/01/17 17:49 INR 1.1 03/01/17 17:49 APTT 29 SECONDS (21-34) 03/01/17 17:49 - Constitutional Appears: Well - Head Exam Head Exam: ATRAUMATIC, NORMAL INSPECTION, NORMOCEPHALIC - Eye Exam Eye Exam: EOMI, Normal appearance, PERRL Pupil Exam: NORMAL ACCOMODATION, PERRL - ENT Exam ENT Exam: Mucous Membranes Moist, Normal Exam - Neck Exam Neck Exam: Full ROM, Normal Inspection. absent: Lymphadenopathy - Respiratory Exam Respiratory Exam: Decreased Breath Sounds - Cardiovascular Exam Cardiovascular Exam: REGULAR RHYTHM, +S1, +S2 - GI/Abdominal Exam GI & Abdominal Exam: Soft, Diminished Bowel Sounds - Rectal Exam Rectal Exam: Deferred
[2017-03-06] MEDS: Lactated Ringer's 1,000 ML IV SCH ×3 (01:00→17:00)
--- NOTE | 2017-03-06 01:29 | CP.PCM.PN ---
Subjective - Date & Time of Evaluation Date of Evaluation: 03/06/17 Time of Evaluation: 01:25 - Subjective Subjective: Surgery Pt s&e. Pt reports having BM. Tolerating diet. + amb. Denies F/C/N?V/D/CP/SOB. + void Objective - Vital Signs/Intake and Output Vital Signs (last 24 hours): Temp Pulse Resp BP Pulse Ox 99.3 F 74 20 164/52 H 94 L 03/05/17 15:00 03/05/17 15:00 03/05/17 15:00 03/05/17 15:00 03/05/17 15:00 - Medications Medications: Current Medications Famotidine (Pepcid) 20 mg IVP Q12 [facility] Last Admin: 03/05/17 22:14 Dose: 20 mg Metronidazole (Flagyl) 500 mg in 100 mls @ 100 mls/hr IVPB BID [facility] Last Admin: 03/05/17 17:41 Dose: 100 mls/hr Cefepime HCl (Maxipime Iv 1 Gm Premix) 1 gm in 50 mls @ 100 mls/hr IVPB Q12H [facility] Last Admin: 03/05/17 22:15 Dose: 100 mls/hr Lactated Ringer's (Lactated Ringer's) 1,000 mls @ 100 mls/hr IV .Q10H [facility] Last Admin: 03/05/17 21:14 Dose: Not Given Ketorolac Tromethamine (Toradol) 10 mg PO Q6 PRN PRN Reason: Pain,moderate(4-7)PO BEFORE IV Stop: 03/10/17 20:56 Metoclopramide HCl (Reglan) 5 mg IVP TID [facility] Last Admin: 03/05/17 17:46 Dose: 5 mg Ondansetron HCl (Zofran Inj) 4 mg IVP Q4H PRN PRN Reason: Nausea/Vomiting - Labs Labs: 03/03/17 06:27 03/03/17 06:20 PT 12.0 SECONDS (9.7-12.2) 03/01/17 17:49 INR 1.1 03/01/17 17:49 APTT 29 SECONDS (21-34) 03/01/17 17:49 - Constitutional Appears: No Acute Distress - Head Exam Head Exam: ATRAUMATIC, NORMAL INSPECTION, NORMOCEPHALIC - Eye Exam Eye Exam: EOMI, Normal appearance, PERRL Pupil Exam: NORMAL ACCOMODATION, PERRL - ENT Exam ENT Exam: Mucous Membranes Moist, Normal Exam - Neck Exam Neck Exam: Full ROM, Normal Inspection. absent: Lymphadenopathy - Respiratory Exam Respiratory Exam: Clear to Ausculation Bilateral, NORMAL BREATHING PATTERN - Cardiovascular Exam Cardiovascular Exam: REGULAR RHYTHM, +S1, +S2. absent: Murmur - GI/Abdominal Exam GI & Abdominal Exam: Soft, Tenderness, Normal Bowel Sounds. absent: Distended, Firm, Guarding Additional comments: Incision C/D/I - Exam Exam: NORMAL INSPECTION - Extremities Exam Extremities Exam: Full ROM, Normal Capillary Refill, Normal Inspection. absent : Joint Swelling, Pedal Edema - Back Exam Back Exam: NORMAL INSPECTION - Neurological Exam Neurological Exam: Alert, Awake, CN II-XII Intact, Normal Gait, Oriented x3 - Psychiatric Exam Psychiatric exam: Normal Affect, Normal Mood - Skin Skin Exam: Dry, Intact, Normal Color, Warm Assessment and Plan - Assessment and Plan (Free Text) Assessment: POD 3 s/p ex lap NOEMÍ. -Advance diet -OK to DC for surgical standpoint -F/U with Dr. Hoover in 1-2 weeks.
--- NOTE | 2017-03-06 07:35 | CP.PCM.PN ---
Subjective - Date & Time of Evaluation Date of Evaluation: 03/06/17 Time of Evaluation: 05:00 - Subjective Subjective: clinically same Objective - Vital Signs/Intake and Output Vital Signs (last 24 hours): Temp Pulse Resp BP Pulse Ox 98.8 F 74 20 150/74 94 L 03/06/17 00:00 03/06/17 00:00 03/06/17 00:00 03/06/17 00:00 03/06/17 00:00 Intake and Output: 03/06/17 03/06/17 06:59 18:59 Intake Total 1000 Balance 1000 - Medications Medications: Current Medications Famotidine (Pepcid) 20 mg IVP Q12 [facility] Last Admin: 03/05/17 22:14 Dose: 20 mg Metronidazole (Flagyl) 500 mg in 100 mls @ 100 mls/hr IVPB BID [facility] Last Admin: 03/05/17 17:41 Dose: 100 mls/hr Cefepime HCl (Maxipime Iv 1 Gm Premix) 1 gm in 50 mls @ 100 mls/hr IVPB Q12H [facility] Last Admin: 03/05/17 22:15 Dose: 100 mls/hr Lactated Ringer's (Lactated Ringer's) 1,000 mls @ 100 mls/hr IV .Q10H [facility] Last Admin: 03/05/17 21:14 Dose: Not Given Ketorolac Tromethamine (Toradol) 10 mg PO Q6 PRN PRN Reason: Pain,moderate(4-7)PO BEFORE IV Stop: 03/10/17 20:56 Metoclopramide HCl (Reglan) 5 mg IVP TID [facility] Last Admin: 03/05/17 17:46 Dose: 5 mg Ondansetron HCl (Zofran Inj) 4 mg IVP Q4H PRN PRN Reason: Nausea/Vomiting - Labs Labs: 03/03/17 06:27 03/03/17 06:20 PT 12.0 SECONDS (9.7-12.2) 03/01/17 17:49 INR 1.1 03/01/17 17:49 APTT 29 SECONDS (21-34) 03/01/17 17:49 - Constitutional Appears: Well - Head Exam Head Exam: ATRAUMATIC, NORMAL INSPECTION, NORMOCEPHALIC - Eye Exam Eye Exam: EOMI, Normal appearance, PERRL Pupil Exam: NORMAL ACCOMODATION, PERRL - ENT Exam ENT Exam: Mucous Membranes Moist, Normal Exam - Neck Exam Neck Exam: Full ROM, Normal Inspection. absent: Lymphadenopathy - Respiratory Exam Respiratory Exam: Decreased Breath Sounds - Cardiovascular Exam Cardiovascular Exam: REGULAR RHYTHM, +S1, +S2 - GI/Abdominal Exam GI & Abdominal Exam: Soft, Diminished Bowel Sounds - Rectal Exam Rectal Exam: Deferred
[2017-03-06] MEDS: metroNIDAZOLE IV 500 mg/100 ml 500 MG/100 ML BAG IVPB SCH ×2 (09:49→18:03)
[2017-03-06] MEDS: Cefepime IV 1 gm in Dextrose 1 GM/50 ML BAG IVPB SCH ×2 (09:50→21:24)
[2017-03-07 07:31] VITALS: BP 147/72; PULSE 70; TEMP 98.8; O2SAT 95
--- NOTE | 2017-03-07 08:53 | CP.PCM.PN ---
Subjective - Date & Time of Evaluation Date of Evaluation: 03/07/17 Time of Evaluation: 07:05 - Subjective Subjective: General Surgery Note Patient was seen and examined at bedside in no acute distress. Patient reports that he is doing well. Patient had no issues overnight. Patient denies nausea, vomiting, abdominal pain, fever and chills. Patient reports that he is having bowel movement, passing flatus and tolerating regular diet. Objective - Vital Signs/Intake and Output Vital Signs (last 24 hours): Temp Pulse Resp BP Pulse Ox 98.8 F 70 20 147/72 95 03/07/17 07:28 03/07/17 07:28 03/07/17 07:28 03/07/17 07:28 03/07/17 07:28 Intake and Output: 03/07/17 03/07/17 06:59 18:59 Intake Total 1130 Balance 1130 - Medications Medications: Current Medications Famotidine (Pepcid) 20 mg IVP Q12 [facility] Last Admin: 03/06/17 21:24 Dose: 20 mg Metronidazole (Flagyl) 500 mg in 100 mls @ 100 mls/hr IVPB BID [facility] Last Admin: 03/06/17 18:03 Dose: 100 mls/hr Cefepime HCl (Maxipime Iv 1 Gm Premix) 1 gm in 50 mls @ 100 mls/hr IVPB Q12H [facility] Last Admin: 03/06/17 21:24 Dose: 100 mls/hr Lactated Ringer's (Lactated Ringer's) 1,000 mls @ 100 mls/hr IV .Q10H [facility] Last Admin: 03/06/17 17:00 Dose: Not Given Ketorolac Tromethamine (Toradol) 10 mg PO Q6 PRN PRN Reason: Pain,moderate(4-7)PO BEFORE IV Stop: 03/10/17 20:56 Metoclopramide HCl (Reglan) 5 mg IVP TID [facility] Last Admin: 03/06/17 18:02 Dose: 5 mg Ondansetron HCl (Zofran Inj) 4 mg IVP Q4H PRN PRN Reason: Nausea/Vomiting - Labs Labs: 03/03/17 06:27 03/03/17 06:20 PT 12.0 SECONDS (9.7-12.2) 03/01/17 17:49 INR 1.1 03/01/17 17:49 APTT 29 SECONDS (21-34) 03/01/17 17:49 - Constitutional Appears: Well, No Acute Distress - Head Exam Head Exam: ATRAUMATIC, NORMAL INSPECTION - Eye Exam Eye Exam: EOMI, Normal appearance - ENT Exam ENT Exam: Mucous Membranes Moist, Normal Exam - Respiratory Exam Respiratory Exam: NORMAL BREATHING PATTERN Additional comments: Chest congestion - Cardiovascular Exam Cardiovascular Exam: REGULAR RHYTHM, +S1, +S2 - GI/Abdominal Exam GI & Abdominal Exam: Soft, Normal Bowel Sounds. absent: Tenderness Additional comments: abdominal incision is intact and katherine are in place - Extremities Exam Extremities Exam: Normal Inspection. absent: Calf Tenderness - Neurological Exam Neurological Exam: Alert, Awake, Oriented x3 - Psychiatric Exam Psychiatric exam: Normal Affect, Normal Mood - Skin Skin Exam: Dry, Normal Color, Warm Assessment and Plan - Assessment and Plan (Free Text) Assessment: Patient is a 76Y M POD #4 s/p ex lap NOEMÍ Plan: -Stable for discharge from surgical standpoint -F/U with Dr. Hoover in 1-2 weeks[address] Plans discussed with Dr. Espinoza, (covering for Dr. Hoover)
[2017-03-07] MEDS: metroNIDAZOLE IV 500 mg/100 ml 500 MG/100 ML BAG IVPB SCH (09:49)
[2017-03-07] MEDS: Cefepime IV 1 gm in Dextrose 1 GM/50 ML BAG IVPB SCH (09:52)
--- NOTE | 2017-03-07 12:02 | CP.PCM.PN ---
Subjective - Date & Time of Evaluation Date of Evaluation: 03/07/17 Time of Evaluation: 12:02 - Subjective Subjective: Alert, awake, denies abdominal pain, tolerating diet, NAD. Objective - Vital Signs/Intake and Output Vital Signs (last 24 hours): Temp Pulse Resp BP Pulse Ox 98.8 F 70 20 147/72 95 03/07/17 07:28 03/07/17 07:28 03/07/17 07:28 03/07/17 07:28 03/07/17 07:28 Intake and Output: 03/07/17 03/07/17 06:59 18:59 Intake Total 1130 Balance 1130 - Medications Medications: Current Medications Famotidine (Pepcid) 20 mg IVP Q12 [facility] Last Admin: 03/07/17 09:53 Dose: 20 mg Cefepime HCl (Maxipime Iv 1 Gm Premix) 1 gm in 50 mls @ 100 mls/hr IVPB Q12H [facility] Last Admin: 03/07/17 09:52 Dose: 100 mls/hr Lactated Ringer's (Lactated Ringer's) 1,000 mls @ 100 mls/hr IV .Q10H [facility] Last Admin: 03/06/17 17:00 Dose: Not Given Ketorolac Tromethamine (Toradol) 10 mg PO Q6 PRN PRN Reason: Pain,moderate(4-7)PO BEFORE IV Stop: 03/10/17 20:56 Metoclopramide HCl (Reglan) 5 mg IVP TID [facility] Last Admin: 03/07/17 09:53 Dose: 5 mg Ondansetron HCl (Zofran Inj) 4 mg IVP Q4H PRN PRN Reason: Nausea/Vomiting - Labs Labs: 03/03/17 06:27 03/03/17 06:20 PT 12.0 SECONDS (9.7-12.2) 03/01/17 17:49 INR 1.1 03/01/17 17:49 APTT 29 SECONDS (21-34) 03/01/17 17:49 Assessment and Plan - Assessment and Plan (Free Text) Assessment: Patient is seen and examined. Alert and oriented x3, NAD. Tolerating regular diet, cleared for discharge by surgery. D/W Rashida, plan for discharge home today. Advised to advance diet slowly at home. To follow up with PMD in 1 week.
--- NOTE | 2017-03-15 02:13 | CP.PCM.DIS ---
Provider - Provider Date of Admission: 03/02/17 12:17 Attending physician: Raymundo Garg MD Time Spent in preparation of Discharge (in minutes): 25 Hospital Course - Lab Results Lab Results: Micro Results 03/03/17 06:00 Nose MRSA Culture - Final MRSA NOT DETECTED 03/02/17 19:53 Nose MRSA Culture (Admit) - Final MRSA NOT DETECTED Most Recent Lab Values WBC 6.3 K/uL (4.8-10.8) 03/03/17 06:27 RBC 4.13 Mil/uL (4.40-5.90) L 03/03/17 06:27 Hgb 12.4 g/dL (12.0-18.0) 03/03/17 06:27 Hct 36.7 % (35.0-51.0) 03/03/17 06:27 MCV 88.9 fL (80.0-94.0) 03/03/17 06:27 MCH 29.9 pg (27.0-31.0) 03/03/17 06:27 MCHC 33.7 g/dL (33.0-37.0) 03/03/17 06:27 RDW 13.3 % (11.5-14.5) 03/03/17 06:27 Plt Count 144 K/uL (130-400) 03/03/17 06:27 MPV 8.9 fL (7.2-11.7) 03/03/17 06:27 Neut % (Auto) 75.4 % (50.0-75.0) H 03/03/17 06:27 Lymph % (Auto) 14.9 % (20.0-40.0) L 03/03/17 06:27 [place] % (Auto) 8.9 % (0.0-10.0) 03/03/17 06:27 Eos % (Auto) 0.7 % (0.0-4.0) 03/03/17 06:27 Baso % (Auto) 0.1 % (0.0-2.0) 03/03/17 06:27 Neut # 4.7 K/uL (1.8-7.0) 03/03/17 06:27 Lymph # 0.9 K/uL (1.0-4.3) L 08/17/17 06:27 [place] # 0.6 K/uL (0.0-0.8) 03/03/17 06:27 Eos # 0.0 K/uL (0.0-0.7) 03/03/17 06:27 Baso # 0.0 K/uL (0.0-0.2) 03/03/17 06:27 Neutrophils % (Manual) 88 % (50-75) H 03/01/17 17:49 Band Neutrophils % 4 % (0-2) H 03/01/17 17:49 Lymphocytes % (Manual) 3 % (20-40) L 03/01/17 17:49 Monocytes % (Manual) 5 % (0-10) 03/01/17 17:49 Platelet Estimate Normal (NORMAL) 03/01/17 17:49 PT 12.0 SECONDS (9.7-12.2) 03/01/17 17:49 INR 1.1 03/01/17 17:49 APTT 29 SECONDS (21-34) 03/01/17 17:49 Sodium 132 mmol/L (132-148) 03/03/17 06:20 Potassium 3.8 mmol/L (3.6-5.2) 03/03/17 06:20 Chloride 99 mmol/L (98-107) 03/03/17 06:20 Carbon Dioxide 24 mmol/L (22-30) 03/03/17 06:20 Anion Gap 12 (10-20) 03/03/17 06:20 BUN 10 mg/dL (9-20) 03/03/17 06:20 Creatinine 0.8 MG/DL (0.8-1.5) 03/03/17 06:20 Est GFR ( Amer) > 60 03/03/17 06:20 Est GFR (Non-Af Amer) > 60 03/03/17 06:20 Random Glucose 94 mg/dL (75-110) 03/03/17 06:20 Calcium 8.2 mg/dl (8.6-10.4) L 03/03/17 06:20 Phosphorus 3.1 mg/dL (2.5-4.5) 03/03/17 06:20 Magnesium 1.7 mg/dL (1.6-2.3) 03/03/17 06:20 Total Bilirubin 0.7 mg/dL (0.2-1.3) 03/03/17 06:20 AST 38 U/L (17-59) 03/03/17 06:20 ALT 29 U/L (21-72) 03/03/17 06:20 Alkaline Phosphatase 35 U/L (38-126) L D 03/03/17 06:20 Total Protein 5.0 g/dL (6.3-8.3) L 03/03/17 06:20 Albumin 2.9 g/dL (3.5-5.0) L D 03/03/17 06:20 Globulin 2.1 gm/dL (2.2-3.9) L 03/03/17 06:20 Albumin/Globulin Ratio 1.4 (1.0-2.1) 03/03/17 06:20 Lipase 114 U/L (23-300) 03/01/17 17:49 Urine Color Yellow (YELLOW) 03/01/17 18:15 Urine Clarity Clear (Clear) 03/01/17 18:15 Urine pH 5.0 (5.0-8.0) 03/01/17 18:15 Ur Specific Groom 1.030 (1.003-1.030) 03/01/17 18:15 Urine Protein 2+ mg/dL (NEGATIVE) H 03/01/17 18:15 Urine Glucose (UA) Normal mg/dL (Normal) 03/01/17 18:15 Urine Ketones Trace mg/dL (NEGATIVE) 03/01/17 18:15 Urine Blood Negative (NEGATIVE) 03/01/17 18:15 Urine Nitrate Negative (NEGATIVE) 03/01/17 18:15 Urine Bilirubin Negative (NEGATIVE) 03/01/17 18:15 Urine Urobilinogen Normal mg/dL (0.2-1.0) 03/01/17 18:15 Ur Leukocyte Esterase Neg Randy/uL (Negative) 03/01/17 18:15 Urine WBC (Auto) 3 /hpf (0-5) 03/01/17 18:15 Ur Squamous Epith Cells < 1 /hpf (0-5) 03/01/17 18:15 Urine Bacteria Many (<OCC) H 03/01/17 18:15 Urine Sperm (Auto) Rare /hpf (NONE) H 03/01/17 18:15 Stool Occult Blood Negative (NEGATIVE) 03/01/17 17:37 Blood Type O POSITIVE 03/01/17 17:49 Antibody Screen Negative 03/01/17 17:49 - Hospital Course Hospital Course: Patient presented with small bowel obstruction, underwent ex lap and lysis of adhesion. Patient improved clinically after the surgery and is being discharged to be followed up as outpatient. Discharge Exam - Head Exam Head Exam: ATRAUMATIC, NORMAL INSPECTION - Eye Exam Eye Exam: Normal appearance - Respiratory Exam Respiratory Exam: Clear to PA & Lateral, NORMAL BREATHING PATTERN - Cardiovascular Exam Cardiovascular Exam: REGULAR RHYTHM, +S1, +S2 - GI/Abdominal Exam GI & Abdominal Exam: Soft - Extremities Exam Extremities exam: normal inspection Discharge Plan - Follow Up Plan Condition: GOOD Disposition: HOME/ ROUTINE Instructions: Acute Abdominal Pain (DC), Bowel Obstruction (DC) Additional Instructions: Patient to see his own PMD for follow up care.
== END 2017-03-07 13:30 | disposition home or self-care (01) | DRG 329 ==
LOC: C.ER 16:53 → C.9OBSV 21:10 → C.9E 21:10 → C.3T 22:53 → OBSVTOIN 03-02 12:17 → C.9I 03-02 16:45 → C.3T 03-03 21:43
PROVIDERS: ADMIT Internal Medicine Nephrology; ATTEND Internal Medicine Nephrology
PROC: 0DQC0ZZ Repair Ileocecal Valve, Open Approach (ICD-10-PCS; 2017-03-02)
PROC: 0DNC0ZZ Release Ileocecal Valve, Open Approach (ICD-10-PCS; principal; 2017-03-02 16:15)
DX: K56.5 Intestinal adhesions [bands] with obstruction (postinfection) (principal); K63.1 Perforation of intestine (nontraumatic); E78.1 Pure hyperglyceridemia; F17.200 Nicotine dependence, unspecified, uncomplicated; M19.90 Unspecified osteoarthritis, unspecified site; E78.5 Hyperlipidemia, unspecified; Z90.49 Acquired absence of other specified parts of digestive tract